=== PATIENT | female | born 1965 | race Caucasian/White ===

== ENCOUNTER 2023-08-28 10:40 | Day surgery (SDC) | payer OTHER, SELFPAY ==
[2023-08-26 15:12] VITALS: BMI 23.0
--- NOTE | 2023-08-27 08:49 | P.CONAN_ITS ---
Documented by User: Marsha Medley NP 08/27/23 08:49 HPI - Anesthesia Eval Consult details Narrative: 57yo F for Upper Endoscopy and Colonoscopy [facility] Past Medical History Medical History (Updated 08/26/23 @ 15:14 by Jyoti Dowling RN) Family history of Hughes syndrome Ovarian cyst Renal calculi Surgical History Surgical History Hx of wisdom tooth extraction Hx of laparoscopy H/O colonoscopy Hx of lithotripsy Social History Social History (Updated 08/26/23 @ 15:16 by Jyoti Dowling RN) Household Members: Spouse Patient Tobacco Use Status: Never used Tobacco Use of substances other than those prescribed or required for medical reasons: No Are you DNR?: No Advance Directives: No Advance Directives Information Provided: Yes Meds Allergies Allergy/AdvReac Type Severity Reaction Status Date / Time tetracycline Allergy Unknown problems Verified 08/28/23 10:48 swallowing, tightness in chest & throat Home Medications ?Medication ?Instructions ?Recorded ?Confirmed ?Last Taken ?Type calcium carbonate 500 mg PO DAILY 08/26/23 08/28/23 Unknown History Exam Height,Weight and Vital Signs: Height 5 ft 9 in Weight 70.76 kg Assessment and Plan Assessment Anesthesia Assessment: Chart Reviewed Documented by User: Osvaldo Cha MD 08/28/23 11:27 [facility] Past Medical History Medical History (Updated 08/26/23 @ 15:14 by Jyoti Dowling RN) Family history of Hughes syndrome Ovarian cyst Renal calculi Family History Family history of problems with anesthesia: No Surgical History Surgical History Hx of wisdom tooth extraction Hx of laparoscopy H/O colonoscopy Hx of lithotripsy History of Problems with Anesthesia: No Social History Social History (Updated 08/26/23 @ 15:16 by Jyoti Dowling RN) Household Members: Spouse Patient Tobacco Use Status: Never used Tobacco Use of substances other than those prescribed or required for medical reasons: No Are you DNR?: No Advance Directives: No Advance Directives Information Provided: Yes Meds Allergies Allergy/AdvReac Type Severity Reaction Status Date / Time tetracycline Allergy Unknown problems Verified 08/28/23 10:48 swallowing, tightness in chest & throat Home Medications ?Medication ?Instructions ?Recorded ?Confirmed ?Last Taken ?Type calcium carbonate 500 mg PO DAILY 08/26/23 08/28/23 Unknown History Exam Airway Mallampati Class: II TM Dist: >3cm Neck ROM: Full Assessment and Plan Assessment Anesthesia Assessment: Anesthesia Plan Discussed Final Anesthetic Review Family History of Problems with Anesthesia: No History of Problems with Anesthesia: No NPO: Yes ASA Class: I Final Preanesthetic Review: No Changes in Pt Med Stat, Meds/Allgs Chart Reviewed, Consent Obtained/Reviewed and Anes Risks/Benef Reviewed Patient Risk: Low Procedure Risk: Low Anesthetic Plan Anesthetic Plan: TIVA Disposition: Standard PACU
[2023-08-28 10:52] VITALS: BMI 22.9
[2023-08-28 10:54] VITALS: BP 110/61; PULSE 55; RESP 16; TEMP 37.1; O2SAT 100
--- NOTE | 2023-08-28 12:28 | PC.NURSE ---
24hr update documented on paper
[2023-08-28 13:02] VITALS: BP 92/46; PULSE 63; RESP 16; TEMP 36.1; O2SAT 99
--- NOTE | 2023-08-28 13:04 | P.BOP_ITS ---
Brief Operative Note Date of Service: 08/28/23 Pre-op diagnosis: Screening Post-op diagnosis: other (Diverticulosis) Procedure: Colonoscopy to the cecum and TI Surgeon: Zay Kaye MD Anesthesia: MAC Was an Metal Or Wood Blocker used for this Procedure?: No Estimated blood loss (mL): 0 Pathology: none sent Condition: stable Disposition: PACU
[2023-08-28 13:17] VITALS: BP 90/46; PULSE 60; RESP 14; O2SAT 99
--- NOTE | 2023-08-28 13:26 | OP_ITS ---
DATE OF SERVICE: 08/28/2023 SURGEON: Zay Kaye MD INDICATIONS: The patient presents for evaluation of personal history of tubular adenoma of the colon and colorectal cancer screening. Full consent has been obtained from her for this, including risks of bleeding and perforation. PREOPERATIVE DIAGNOSIS: Colorectal cancer screening. POSTOPERATIVE DIAGNOSIS: PROCEDURE PERFORMED: Colonoscopy to cecum and terminal ileum. ESTIMATED BLOOD LOSS: COMPLICATIONS: ANESTHESIA: Monitored anesthesia care. ASSISTANTS: SPECIMENS: POSTOPERATIVE DIAGNOSES: Colorectal cancer screening, small internal hemorrhoids. DESCRIPTION OF PROCEDURE: The patient was placed in the left lateral decubitus position. The digital rectal exam revealed no abnormalities. The Olympus video pediatric colonoscope was entered into the rectum and advanced easily to the cecum. Once in the cecum, I did identify normal-appearing cecal pouch with appendiceal orifice and a normal-appearing ileocecal valve. The terminal ileum was cannulated and appeared normal. The scope was withdrawn back in the colon. The entire cecum and ileocecal valve appeared normal. The scope was slowly withdrawn assessing all mucosal surfaces carefully. Preparation was excellent. I did not visualize any sign of polyps, colitis, nor angiodysplasia. There was a mild amount of sigmoid diverticulosis. In the rectum, scope was retroflexed visualizing internal hemorrhoids but no other pathology. The rectal mucosa appeared normal. The scope was straightened and withdrawn from the patient. She tolerated the procedure well and was returned to the recovery area in stable condition. IMPRESSION: 1. Diverticulosis. 2. Internal hemorrhoids. PLAN: Given her previous history of a tubular adenoma, I would recommend a followup coloscopy in 5 years for further screening. She will otherwise see me on a p.r.n. basis. MD ADE Nielson/JUANITOL / [id number]
[2023-08-28 13:27] VITALS: BP 97/58; PULSE 53; RESP 16; TEMP 36.2; O2SAT 98
== END 2023-08-28 14:16 | disposition home or self-care (01) ==
PROVIDERS: PCP Internal Medicine Medical Oncology; Visit Provider Internal Medicine
PROC: 0DJD8ZZ Inspection of Lower Intestinal Tract, Via Natural or Artificial Opening Endoscopic (ICD-10-PCS; CPT 45378; principal; 2023-08-28 11:30)
DX: Z12.11 Encounter for screening for malignant neoplasm of colon (principal); Z86.010 Personal history of colon polyps; K57.30 Diverticulosis of large intestine without perforation or abscess without bleeding; K64.8 Other hemorrhoids; N83.209 Unspecified ovarian cyst, unspecified side; Z87.442 Personal history of urinary calculi; Z80.7 Family history of other malignant neoplasms of lymphoid, hematopoietic and related tissues; Z84.81 Family history of carrier of genetic disease; Z88.1 Allergy status to other antibiotic agents
CPT/HCPCS: 45378; J2704